=== PATIENT | male | born 1995 | race Caucasian/White ===

== ENCOUNTER 2018-09-14 11:27 | Observation (INO) | payer MEDICAID, OTHER ==
--- NOTE | 2018-09-14 11:53 | EDPHY ---
H & P Stated Complaint: L leg injury Time Seen by Provider: 09/14/18 11:46 HPI/ROS: HPI: This is a 23-year-old male who presents with Chief Complaint: Left leg injury Location: Left lower leg Quality: Injury Duration: 1 hr prior to arrival Signs and Symptoms: No bleeding, no radiation, no numbness, no weakness, no tingling, no incontinence, + decreased range of motion,+ swelling, + pain, no fever Timing: Acute Severity: 10 out 10 Context: Patient arrives via personal vehicle with complaints of hitting a tree and directly impacting his left lower leg while skiing at [place] approximately 1-2 hours prior to arrival. He reports constant, severe, radiating pain down into his ankle. Denies LOC/head injury/neck pain/dizziness/ nausea/vomiting/amnesia. There is a small abrasion noted to the upper portion of his tibia 2 in inferior to his knee. Last meal was yesterday afternoon. Modifying Factors: None Comment: ROS: A comprehensive 10 system review of systems is otherwise negative aside from elements mentioned in the history of present illness. MEDICAL/SURGICAL/SOCIAL HISTORY: Medical history: Generally healthy. Does not take any regular medications. Surgical history: Left wrist, jaw Social history: Never smoked. CONSTITUTIONAL: Polite and cooperative, well-developed and well-nourished adult white male, awake and alert, no obvious distress HEENT: Atraumatic and normocephalic. NECK: supple, no midline tenderness, flexion 45 degrees, extension 45 degrees, right and left lateral flexion 45 degrees. No meningismus. Cardiovascular: Normal S1/S2, regular rate, regular rhythm, without murmur rub or gallop. PULMONARY/CHEST: Symmetrical and nontender. no crepitus. Clear to auscultation bilaterally. Good air movement. No accessory muscle usage. ABDOMEN: Soft, nondistended, nontender, no ecchymosis. PELVIC: no pain with rocking; bilateral hips flexion 125 degrees, extension 30 degrees, with no pain internal rotation and no pain external rotation. BACK: No midline tenderness, no paraspinous spasm, deep tendon reflexes 2/2, no pain with straight leg raise, No foot drop. Achilles reflexes are equal bilaterally. Able to walk on heels and toes without difficulty. EXTREMITIES: 2/2 pulses, strength 5/5, left KNEE: Mild effusion, no medial and lateral joint line tenderness, full extension to 180, 2 in inferior to the knee shows small abrasion with obvious deformity but no active bleeding. Area is extremely tender to palpation. Left Ankle: Plantar flexion to 20, dorsiflexion to 10. Foot inversion to 15 degree. No tenderness/swelling Anterior talofibular ligament. No tenderness/swelling Calcaneofibular ligament , no tenderness/swelling posterior talofibular ligament, no tenderness/swelling posterior inferior tibiofibular ligament. Achilles tendon intact. DIP/PIP/MCP flexion/extension intact with good light touch sensation. no deformities, no clubbing, no cyanosis or edema. NEUROLOGICAL: no focal neuro deficits. GCS 15. Light touch sensation intact. SKIN: Warm and dry, no erythema. no rash. Good capillary refill. Source: Patient Exam Limitations: No limitations - Personal History Current Tetanus/Diphtheria Vaccine: Yes Current Tetanus Diphtheria and Acellular Pertussis (TDAP): Yes Tetanus Vaccine Date: 01/25 - Medical/Surgical History Hx Asthma: No Hx Chronic Respiratory Disease: No Hx Diabetes: No Hx Cardiac Disease: No Hx Renal Disease: No Hx Cirrhosis: No Hx Alcoholism: No Hx HIV/AIDS: No Hx Splenectomy or Spleen Trauma: No Other PMH: psh- L wrist, jaw - Social History Smoking Status: Never smoked Constitutional: Initial Vital Signs Temperature (C) 37 C 09/14/18 11:32 Heart Rate 55 L 09/14/18 11:32 Respiratory Rate 16 09/14/18 11:32 Blood Pressure 117/77 09/14/18 11:32 O2 Sat (%) 98 09/14/18 11:32 O2 Delivery Mode Room Air Allergies/Adverse Reactions: No Known Allergies Allergy (Unverified 09/14/18 11:32) Medical Decision Making - Diagnostics Imaging Results: Imaging Impressions Tibia/Fibula X-Ray 09/14/18 11:35 Impression: Nondisplaced comminuted proximal tibial metadiaphyseal fracture. ED Course/Re-evaluation: Vital signs reviewed and stable upon arrival. IV access obtained and given IV fentanyl 50 mcg, IV morphine and IV Ancef X-ray at bedside shows closed comminuted tibia proximal fracture; minimally displaced. No fibula fracture. 1205: ED decision to consult Orthopedics, Dr. Castellanos. Texted images per request. Advised to be made NPO. Plans to take to OR around 130 this afternoon. No signs of neurovascular compromise/compartment syndrome/extremities and joints examined above and below area of concern and are neurovascularly intact. This patient was seen under the supervision of my secondary supervising physician. I evaluated care for this patient independently. Discussed this patient with Dr. Gonzalez who did not see the patient. Differential Diagnosis: Knee injury while [] including but not limited to fracture, ACL injury, contusion, muscular strain, and meniscus injury. - Data Points Medications Given: Discontinued Medications Bupivacaine HCl (Sensorcaine 0.5% Vial) Confirm Administered Dose 30 ml .ROUTE .STK-MED ONE Stop: 09/14/18 13:27 Last Admin: 09/14/18 14:24 Dose: 30 ml Fentanyl (Sublimaze) 50 mcg IVP EDNOW ONE Stop: 09/14/18 12:01 Last Admin: 09/14/18 12:06 Dose: 50 mcg Cefazolin Sodium/Dextrose (Ancef 1 Gm (Premix)) 50 mls @ 200 mls/hr IV EDNOW ONE PRN Reason: Protocol Stop: 09/14/18 12:14 Last Admin: 09/14/18 12:19 Dose: 50 mls Sodium Chloride (Ns) 1,000 mls @ 0 mls/hr IV EDNOW ONE; Wide Open PRN Reason: Protocol Stop: 09/14/18 12:28 Last Admin: 09/14/18 12:49 Dose: 1,000 mls Lactated Ringer's (Lr) 1,000 mls @ 0 mls/hr IV ONCE ONE PRN Reason: Per Protocol Stop: 09/14/18 13:11 Last Admin: 09/14/18 13:26 Dose: 1,000 mls Cefazolin Sodium/Dextrose (Ancef 1 Gm (Premix)) 50 mls @ 200 mls/hr IV ONCALL ONE Stop: 09/14/18 13:44 Last Admin: 09/14/18 13:48 Dose: 50 mls Midazolam HCl (Versed) 2 mg IVP ONCALL ONE Stop: 09/14/18 13:29 Last Admin: 09/14/18 13:44 Dose: 2 mg Ondansetron HCl (Zofran) 4 mg IVP EDNOW ONE Stop: 09/14/18 12:01 Last Admin: 09/14/18 12:53 Dose: Not Given Polymyxin B Sulfate (Polymyxin B Syringe) Confirm Administered Dose 500,000 unit IRR .STK-MED ONE Stop: 09/14/18 13:27 Last Admin: 09/14/18 14:25 Dose: Not Given Departure - Departure Disposition: To OP Cath/Surgery Clinical Impression: Displaced comminuted fracture of shaft of tibia Qualifiers: Encounter type: initial encounter Fracture type: closed Laterality: right Qualified Code(s): S82.251A - Displaced comminuted fracture of shaft of right tibia, initial encounter for closed fracture Condition: Fair
[2018-09-14] MEDS ORDERED: fentaNYL 100 MCG/2 ML INJ ONE ×2 (11:55→16:22)
[2018-09-14] MEDS ORDERED: ONDANSETRON 4 MG/2 ML VIAL IVP ONE (12:00)
[2018-09-14] MEDS ORDERED: fentaNYL 100 MCG/2 ML INJ IVP ONE (12:00)
--- NOTE | 2018-09-14 12:24 | PDCONSULT ---
Steam Hand Note: Spoke to ED Injury at [facility] since yesterday Xrays reviewed Plan for ORIF Proximal tibia Possibly 130pm today
[2018-09-14] MEDS ORDERED: NS 1,000 ML IV ONE (12:27)
[2018-09-14] MEDS ORDERED: LR 1,000 ML IV ONE (13:10)
[2018-09-14] MEDS ORDERED: POLYMYXIN B SULFATE 500,000 UNIT/10 ML SYR IRR ONE (13:26)
[2018-09-14] MEDS ORDERED: BUPIVACAINE 0.5% 30 ML SDV ONE (13:26)
[2018-09-14] MEDS ORDERED: BACITRACIN 50,000 UNITS/10 ML SYR IRR ONE (13:26)
[2018-09-14] MEDS ORDERED: MIDAZOLAM 2 MG/2 ML VIAL IVP ONE (13:28)
--- NOTE | 2018-09-14 13:30 | PDANEPAE ---
ANE History of Present Illness L tibial plateau ORIF ANE Past Medical History - Pulmonary History Hx Sleep Apnea: No - Endocrine History Hx Diabetes: No ANE Review of Systems Review of systems is: negative Review of Systems: - Exercise capacity Exercise capacity: >=4 METS ANE Patient History - Allergies Allergies/Adverse Reactions: No Known Allergies Allergy (Unverified 09/14/18 11:32) - Home Medications Home medications: home medication list seen and reviewed - NPO status NPO Status: no food or drink >8 hours NPO Since - Liquids (Date): 09/14/18 NPO Since - Liquids (Time): 08:00 NPO Since - Solids (Date): 09/13/18 NPO Since - Solids (Time): 20:00 - Anes Hx Anes Hx: post operative nausea Hx Anesthesia Complications (with details): N2O caused nausea - Smoking Hx Smoking Status: Never smoked - Family Anes Hx Family Anes Hx: none ANE Labs/Vital Signs - Vital Signs Vital Signs: reviewed preoperatively; see RN documention for details Blood Pressure: 119/64 Heart Rate: 48 Respiratory Rate: 16 O2 Sat (%): 100 Height: 182.88 cm Weight: 68.039 kg ANE Physical Exam - Airway Neck exam: FROM Mallampati Score: Class 1 Mouth exam: normal dental/mouth exam - Pulmonary Pulmonary: no respiratory distress - Cardiovascular Cardiovascular: regular rate and rhythym - ASA Status ASA Status: I ANE Anesthesia Plan Anesthesia Plan: GA w LMA
--- NOTE | 2018-09-14 13:31 | GCON ---
ORTHOPEDIC ER CONSULT CHIEF COMPLAINT: Left leg pain. DIAGNOSIS: Left proximal tibia fracture, comminuted. HISTORY OF PRESENT ILLNESS: A 23-year-old male who was snowboarding at [place] this morning. Last me al was yesterday. Was going through the trees, hit a tree. Impacted left tibia. Denies any other i njuries. Triaged to the emergency room. X-rays, 2 views, show comminuted tibia fracture with some d isplacement into the proximal portion. PHYSICAL EXAMINATION: EXTREMITIES: No pain with passive range of motion of his toes. Full range of motion of the right lower extremity and bilateral upper extremities without any pain. He has a 1 x 1 cm excoriation at the midshaft of the tibia. No evidence of open fracture. Looks like abrasion fr om the boot. IMAGING: Reviewed. IMPRESSION/RECOMMENDATION: Comminuted proximal tibia fracture. PLAN: For internal fixation. Risks, benefits, expectations, and alternatives were discussed. Paulo rtment syndrome was discussed. He has no evidence of compartment syndrome currently. Plan for ORIF. 20 minutes at the bedside. /[id number]/MODL
[2018-09-14] MEDS ORDERED: PROPOFOL 200 MG/20 ML VIAL ONE (13:44)
[2018-09-14] MEDS ORDERED: DEXAMETHASONE 4 MG/ML VIAL ONE (13:44)
[2018-09-14] MEDS ORDERED: HYDROmorphONE/DILAUDID 2 MG/ML INJ ONE (13:44)
[2018-09-14] MEDS ORDERED: ONDANSETRON 4 MG/2 ML VIAL ONE (13:44)
[2018-09-14] MEDS ORDERED: LIDOCAINE 2% 100 MG/5 ML SYR ONE (13:44)
[2018-09-14] MEDS ORDERED: ePHEDrine SULFATE 25 MG/5 ML SYR ONE (14:21)
[2018-09-14] MEDS ORDERED: KETOROLAC 30 MG/1 ML SDV ONE (15:28)
[2018-09-14] MEDS ORDERED: ACETAMINOPHEN 325 MG TAB PO PRN (15:50)
[2018-09-14] MEDS ORDERED: ONDANSETRON 4 MG/2 ML VIAL IVP PRN ×2 (15:50→16:19)
[2018-09-14] MEDS ORDERED: D5W 1/2 NS W/ 20 KCl/L 1,000 ML IV SCH (16:00)
[2018-09-14] MEDS ORDERED: HYDROCODONE/APAP 5/325 TAB PO PRN (16:19)
[2018-09-14] MEDS ORDERED: DEXAMETHASONE 4 MG/ML VIAL IVP PRN (16:19)
[2018-09-14] MEDS ORDERED: PROMETHAZINE HCL 25 MG/ML INJ IVP PRN (16:19)
[2018-09-14] MEDS ORDERED: fentaNYL 100 MCG/2 ML INJ IVP PRN (16:19)
[2018-09-14] MEDS ORDERED: HYDROmorphONE/DILAUDID 2 MG/ML INJ IVP PRN (16:19)
[2018-09-14] MEDS ORDERED: NALOXONE HCL 0.4 MG/ML INJ IVP PRN (16:19)
[2018-09-14] MEDS ORDERED: MEPERIDINE 25 MG/0.5 ML AMP IVP PRN (16:19)
[2018-09-14] MEDS ORDERED: oxyCODONE IR 5 MG TAB PO PRN (16:19)
--- NOTE | 2018-09-14 16:21 | POSTANESTH ---
Post Anesthetic Evaluation Cardiovascular Status: Normal, Stable, Similar to Pre-Op Cond Respiratory Status: Normal, Stable, Similar to Pre-op Cond. Level of Consciousness/Mental Status: Can Participate in Eval, Mildly Sleepy, Arousable Pain Control: Adequate, Prn Tx Ordered Nausea/Vomiting Control: Adequate, Prn Tx Ordered Complications Possibly Related to Anesthesia: None Noted
--- NOTE | 2018-09-14 16:48 | GOP ---
DATE OF OPERATION: SURGEON: Will Castellanos MD PREOPERATIVE DIAGNOSIS: Comminuted left proximal tibia fracture. POSTOPERATIVE DIAGNOSIS: Comminuted left proximal tibia fracture. PROCEDURE PERFORMED: 1. Open reduction, internal fixation of the left tibia shaft fracture with proximal component. 2. Dual compartment release anterolateral compartment release. FINDINGS: ESTIMATED BLOOD LOSS: Minimal. INDICATIONS: The patient is a 23-year-old male, who had a snowboarding injury at [place]. Triaged to the emergency room. Clinical radiographic concerning for a tibia shaft fracture with proximal commi nution. No evidence of compartment syndrome. The patient identified in the preoperative holding area. Consent laterality and preoperative antibio tics were confirmed and delivered. All questions were answered. His family was at the bedside. He had passive range of motion of his toes without any pain. DESCRIPTION OF PROCEDURE: The patient was brought to the operating room. General anesthesia. Place d on a Mando table. Triangles were anticipated. Greater troch bump was used. Left lower extremit y was prepped and draped in the usual sterile fashion. Surgical time-out was performed. No tourniqu et was used. The knee was placed on a small triangle. We made a hockey-stick incision over the ante rolateral tibia. Took the anterolateral fascia in line. Used curved scissors and did a release of t he fascia. We slid a longus plate down the tibia. We confirmed under fluoroscopic views that we wer e in nice alignment. We placed 3 pins proximally and compression screws distally and filled in the r emainder of locking screws in strategic places with minimally invasive plate osteosynthesis technique in the bow. We confirmed under fluoroscopic view that we had nice alignment of the fracture. We br idged the comminution. We copiously washed out the wound with 500 cc of warm normal saline. 30 cc of 0.2% ropivacaine were used. 2-0 PDS, 3-0 Monocryl, and bruno for closure. A soft sterile dressing was applied with Xero form, 4 x 4's, ABD, Webril, and an Rory wrap with a DANA hose. COMPLICATIONS: None. TOURNIQUET TIME: 0. DISPOSITION: Extubated and went to PACU in stable condition. /[id number]/MODL
[2018-09-14] MEDS: HYDROCODONE/APAP 5/325 TAB PO PRN ×2 (19:48→22:56)
[2018-09-15] MEDS: OXYCODONE/APAP 5/325 TAB PO PRN ×2 (01:02→05:22)
[2018-09-15 08:44] VITALS: BP 114/70
[2018-09-15] MEDS ORDERED: ENOXAPARIN 40 MG/0.4 ML SYR SC SCH (09:00)
[2018-09-15] MEDS: oxyCODONE IR 5 MG TAB PO PRN ×2 (10:05→13:15)
--- NOTE | 2018-09-15 10:26 | SOAPPROG ---
SOAP Progress Note Assessment/Plan: Assessment: POD 1. doing well Plan: 09/15/18 10:25 Home PT/OT fu one week Subjective: POD 1. up with PT crutches Objective: Vital Signs Temp Pulse Resp BP Pulse Ox 36.6 C 77 18 114/70 97 09/15/18 08:00 09/15/18 08:00 09/15/18 08:00 09/15/18 08:00 09/15/18 08:00 09/14/18 09/15/18 09/16/18 05:59 05:59 05:59 Intake Total 1225 Output Total 350 Balance 875 NVI dressing sero sang stained mobile toes walking with crutches ICD10 Worksheet Patient Problems: Problems Problem Status Onset Displaced comminuted fracture of shaft of tibia Acute
--- NOTE | 2018-09-15 14:48 | ASMTCMCOM ---
CM Note CM Note Notes: Pt medically stable for d/c home with parents support. PT rec home. No CM d/c needs identified. Date Signed: 09/15/2018 02:48 PM Electronically Signed By:FILIPE Michaud
== END 2018-09-15 14:22 | disposition home or self-care (01) ==
LOC: FSGY 13:05 → F3N 15:50
PROVIDERS: ADMIT Orthopaedic Surgery; ATTEND Orthopaedic Surgery
PROC: BQ1FZZZ Fluoroscopy of Left Lower Leg (ICD-10-PCS; principal; 2018-09-14 13:30)
PROC: 0QSH04Z Reposition Left Tibia with Internal Fixation Device, Open Approach (ICD-10-PCS; principal; 2018-09-14 13:30)
DX: S82.102A Unspecified fracture of upper end of left tibia, initial encounter for closed fracture (principal); E86.9 Volume depletion, unspecified; V00.322A Snow-skier colliding with stationary object, initial encounter; Y93.23 Activity, snow (alpine) (downhill) skiing, snowboarding, sledding, tobogganing and snow tubing; Y92.838 Other recreation area as the place of occurrence of the external cause
CPT/HCPCS: 27535; 73590; 76001; 96372; 97116; 97161; 97165; 99285; G0378; C1713; J0690; J1100; J1170; J1650; J1885; J2001; J2250; J2405; J2704; J3010